=== PATIENT | female | born 1990 ===

== ENCOUNTER 2025-07-27 09:36 | Day surgery (SDC) | payer OTHER ==
[~2025-07-27 09:36] MED LIST: ALBU90OI INH; CEFTRIAXONE1 GM IV; CefTRIAXone Sodium 1,000 MG in NS 100 ML IV SCH; LEVSOD100 PO; TRAM50 PO; VITAMIN D5000 UNIT PO
[2025-07-27 16:40] VITALS: BP 113/76
[2025-07-27] MEDS ORDERED: AMPDEX5 PO (16:48)
[2025-07-27] MEDS ORDERED: Pyridium100 MG PO (17:29)
== END 2025-07-27 17:08 | disposition home or self-care (01) ==
LOC: ATC 09:36
DX: N10 Acute pyelonephritis (principal); N13.2 Hydronephrosis with renal and ureteral calculous obstruction; F17.210 Nicotine dependence, cigarettes, uncomplicated; E03.9 Hypothyroidism, unspecified
CPT/HCPCS: 96365; 99211; J0696

== ENCOUNTER 2025-07-28 04:16 | Day surgery (SDC) | payer OTHER ==
[~2025-07-28 04:16] MED LIST changes: +AMPDEX5 PO; +Pyridium100 MG PO
[2025-07-28 16:40] VITALS: BP 122/75
== END 2025-07-28 17:05 | disposition home or self-care (01) ==
LOC: ATC 04:16
DX: N10 Acute pyelonephritis (principal); N20.1 Calculus of ureter; N13.4 Hydroureter; N39.0 Urinary tract infection, site not specified; E03.9 Hypothyroidism, unspecified; F17.210 Nicotine dependence, cigarettes, uncomplicated; Z79.890 Hormone replacement therapy; Z79.899 Other long term (current) drug therapy; Z87.39 Personal history of other diseases of the musculoskeletal system and connective tissue
CPT/HCPCS: 96374; 99211; J0696

== ENCOUNTER 2025-07-29 00:29 | Day surgery (SDC) | payer OTHER ==
[2025-07-29 16:20] VITALS: BP 123/77
== END 2025-07-29 16:43 | disposition home or self-care (01) ==
LOC: ATC 00:29
DX: N10 Acute pyelonephritis (principal); N13.2 Hydronephrosis with renal and ureteral calculous obstruction; E03.9 Hypothyroidism, unspecified; F17.210 Nicotine dependence, cigarettes, uncomplicated
CPT/HCPCS: 96365; J0696